=== PATIENT | male | born 1995 | race Caucasian/White ===

== ENCOUNTER 2024-09-11 04:15 | Emergency (ER) | payer OTHER | END 2024-09-11 05:30 | disposition home or self-care (01) | LOC: MW.ED 04:15 | DX: L72.0 Epidermal cyst (principal); Z90.49 Acquired absence of other specified parts of digestive tract; Z87.891 Personal history of nicotine dependence | CPT/HCPCS: 99282 ==

== ENCOUNTER 2024-09-19 06:06 | Day surgery (SDC) | payer OTHER ==
[2024-09-19] MEDS: Lactated Ringers 1,000 ML IV SCH (06:41)
[2024-09-19] MEDS ORDERED: Bupivacaine 0.5% 30 ML SDV ONE (07:05)
[2024-09-19] MEDS ORDERED: Bacitracin Oint 28.35 GM Tube ONE (07:05)
[2024-09-19] MEDS ORDERED: Midazolam 1 MG/ML 2 ML SDV ONE (07:11)
[2024-09-19] MEDS ORDERED: Propofol 200 MG/20 ML SDV ONE (07:11)
[2024-09-19] MEDS ORDERED: fentaNYL 100 MCG/2 ML SDV ONE (07:11)
[2024-09-19] MEDS ORDERED: Lidocaine 2% 5 ML SDV ONE (07:12)
[2024-09-19] MEDS ORDERED: Rocuronium Bromide 50 MG/5 ML Syringe ONE ×2 (07:12→08:09)
[2024-09-19] MEDS ORDERED: Ondansetron 4 MG/2 ML SDV ONE (08:12)
[2024-09-19] MEDS ORDERED: Ketorolac 30 MG/ML SDV ONE (08:12)
[2024-09-19] MEDS ORDERED: Dexamethasone 4 MG/ML 5 ML MDV ONE (08:12)
[2024-09-19] MEDS ORDERED: Sugammadex Sodium 200 MG/2 ML VIAL IV ONE (08:12)
[2024-09-19] MEDS ORDERED: fentaNYL 50 MCG/ML SDV IVPUSH PRN (08:21)
[2024-09-19] MEDS ORDERED: HYDROmorphone 1 MG/ML Syringe IVPUSH PRN (08:21)
[2024-09-19] MEDS ORDERED: Naloxone 0.4 MG/ML SDV IVPUSH PRN (08:21)
[2024-09-19] MEDS ORDERED: Metoclopramide 10 MG/2 ML SDV IVPUSH PRN (08:21)
[2024-09-19] MEDS ORDERED: Ondansetron 4 MG/2 ML SDV IVPUSH PRN (08:21)
[2024-09-19] MEDS ORDERED: Albuterol 0.083% 2.5 MG/3 ML Neb Soln NEB PRN (08:21)
[2024-09-19] MEDS ORDERED: Morphine 2 MG/ML SYRINGE IVPUSH PRN (08:21)
[2024-09-19] MEDS ORDERED: Phenylephrine HCl In 0.9% NaCl 1 MG/10 ML Syringe IVPUSH PRN (08:21)
[2024-09-19] MEDS ORDERED: ePHEDrine 50 MG/ML SDV ONE (08:36)
[2024-09-19] MEDS ORDERED: Acetaminophen/HYDROcodone 325-5 MG Tab PO PRN (09:20)
[2024-09-19] MEDS ORDERED: Lactated Ringers 1,000 ML IV SCH (09:30)
== END 2024-09-19 10:10 | disposition home or self-care (01) ==
LOC: MW.SDS 06:06
PROVIDERS: ATTEND Surgery
DX: L02.212 Cutaneous abscess of back [any part, except buttock and flank] (principal); E78.1 Pure hyperglyceridemia; L72.0 Epidermal cyst; Z79.899 Other long term (current) drug therapy; Z87.891 Personal history of nicotine dependence
CPT/HCPCS: 10061; 87070; 87075; 87205; J0665; J1100; J1885; J2003; J2250; J2704; J3010; J7120; 00300; A9270-GY; J2405; J3490